=== PATIENT | female | born 1950 | race Caucasian/White ===

== ENCOUNTER 2016-04-11 18:10 | Emergency (ER) | payer MEDICARE ==
[2016-04-11] MEDS ORDERED: HYDROmorphone 1 MG/ML 1 ML SYRINGE IM STA (18:51)
--- NOTE | 2016-04-11 19:01 | ED ---
Upper Extremity HPI - General Chief Complaint: Extremity Injury, Upper Stated Complaint: Fell/shoulder injury Time Seen by Provider: 04/11/16 18:45 Source: patient, RN notes reviewed Mode of arrival: wheelchair Limitations: no limitations - History of Present Illness Initial Comments: 65-year-old female presents emergency Department with chief complaint of right shoulder pain. Patient states that she slipped on the ice approximately 2 hours ago at the end of her driveway and fell directly on the right shoulder. Patient denies any other injury other than her shoulder. She states her arm was tucked in. Patient denies head injury, LOC, neck pain, back pain, chest pain, shortness breath, nausea or vomiting. Patient denies any previous injuries to her right arm. She states that she feels some clicking and grinding with any slight movement. - Related Data Home Medications Medication Instructions Recorded Confirmed Aspirin 81 mg PO DAILY 12/17/13 04/11/16 Sertraline [Zoloft] 200 mg PO DAILY 12/17/13 04/11/16 Lisinopril [Zestril] 20 mg PO QAM 02/08/15 04/11/16 Naproxen Sodium [Aleve] 440 mg PO BID PRN 02/08/15 04/11/16 Rosuvastatin [Crestor] 20 mg PO HS 04/11/16 04/11/16 guaiFENesin [Mucinex] 600 mg PO Q12H PRN 04/11/16 04/11/16 Previous Rx's Medication Instructions Recorded HYDROcodone/APAP 7.5-325MG [[place] 1 tab PO Q6HR PRN #20 tab 04/11/16 7.5-325] Allergies Allergy/AdvReac Type Severity Reaction Status Date / Time red dye Allergy SKIN TURNS Verified 04/11/16 19:12 RED Review of Systems ROS Statement: Those systems with pertinent positive or pertinent negative responses have been documented in the HPI. ROS Other: All systems not noted in ROS Statement are negative. Past Medical History Past Medical History: Hyperlipidemia, Hypertension Additional Past Medical History / Comment(s): low back pain, POSITIVE STOOL SAMPLE History of Any Multi-Drug Resistant Organisms: None Reported Past Surgical History: Hernia Repair, Tonsillectomy Additional Past Surgical History / Comment(s): COLONOSCOPY. BILAT CATARACT SX Past Anesthesia/Blood Transfusion Reactions: No Reported Reaction Past Psychological History: Depression Smoking Status: Never smoker Past Alcohol Use History: None Reported Past Drug Use History: None Reported - Past Family History Mother Family Medical History: Cancer General Exam Limitations: no limitations General appearance: alert, in no apparent distress Head exam: Present: atraumatic, normocephalic, normal inspection Eye exam: Present: normal appearance, PERRL, EOMI. Absent: scleral icterus, conjunctival injection, periorbital swelling Neck exam: Present: normal inspection, full ROM. Absent: tenderness, meningismus, lymphadenopathy Respiratory exam: Present: normal lung sounds bilaterally. Absent: respiratory distress, wheezes, rales, rhonchi, stridor Cardiovascular Exam: Present: regular rate, normal rhythm, normal heart sounds. Absent: systolic murmur, diastolic murmur, rubs, gallop, clicks Extremities exam: Present: other (Right shoulder patient unwilling to move there is diffuse tenderness noted, radial pulses equal bilaterally with Refill less than 2 seconds there is no forearm tenderness there is no tenderness to the elbow) Back exam: Present: full ROM. Absent: tenderness, paraspinal tenderness, vertebral tenderness Neurological exam: Present: alert, oriented X3, CN II-XII intact Skin exam: Present: warm, dry, intact, normal color. Absent: rash Course Vital Signs 04/11/16 18:42 Temperature 97.2 F L Pulse Rate 73 Respiratory 18 Rate Blood Pressure 172/78 O2 Sat by Pulse 97 Oximetry Medical Decision Making - Medical Decision Making 65-year-old female presented emergency department for slipped and fall on ice. Patient right shoulder pain. Patient has a right humerus fracture. Patient was placed in a sling, given a prescription for pain medication and follow-up with orthopedics Dr. Goyal on-call. Return parameters were discussed. Disposition Clinical Impression: Fall from slipping on ice, Right humeral fracture Disposition: HOME SELF-CARE Condition: Stable Instructions: Arm Fracture in Adults (ED) Additional Instructions: Please wear sling until seen by orthopedics.Please return to the Emergency Department if symptoms worsen or any other concerns. Prescriptions: HYDROcodone/APAP 7.5-325MG [[place] 7.5-325] 1 tab PO Q6HR PRN #20 tab PRN Reason: Pain Referrals: Agata Velazquez III, MD [Primary Care Provider] - 1-2 days Armond Lozano MD [STAFF PHYSICIAN] - 1-2 days Time of Disposition: 19:36
--- NOTE | 2016-04-11 19:37 | XR ---
EXAMINATION TYPE: XR shoulder complete RT DATE OF EXAM: 04/11/2016 7:32 PM COMPARISON: NONE HISTORY: Fall today. Shoulder pain. TECHNIQUE: 2 views FINDINGS: There is an impacted fracture of the humeral neck. There is no dislocation. Exam is limited by the views. AC joint is intact. IMPRESSION: Acute impacted humeral neck fracture. There is probably 2 cm of impaction and displacemen t.
[2016-04-11] MEDS ORDERED: HYDROcodone/APAP 7.5-325MG 1 EACH TAB PO ONE (19:43)
[2016-04-11] MEDS ORDERED: DIAZEPAM 5 MG TAB PO STA (20:34)
[2016-04-11 21:04] VITALS: BP 168/73; PULSE 72; RESP 16; TEMP 97.5
== END 2016-04-11 21:00 | disposition home or self-care (01) ==
LOC: EC 18:10
DX: S42.301A Unspecified fracture of shaft of humerus, right arm, initial encounter for closed fracture (principal); W00.0XXA Fall on same level due to ice and snow, initial encounter; I10 Essential (primary) hypertension; E78.5 Hyperlipidemia, unspecified; F32.9 Major depressive disorder, single episode, unspecified; Z79.82 Long term (current) use of aspirin; Z79.899 Other long term (current) drug therapy
CPT/HCPCS: 73030; 99283; 96372; J1170

== ENCOUNTER → 2016-04-12 | Outpatient (CLI) | payer MEDICARE ==
[2016-04-12 13:43] LABS: EKG EKG PERFORMED
[2016-04-12 14:17] LABS: Basophils % (A) 0 %; CH 30.6; CHCM 32.4; Eosinophils % (A) 0 %; HCT 38.4 % (34.0-46.0); HDW 2.44; HGB 12.4 gm/dL (11.4-16.0); Luc # (Auto) 0.13; Luc % (Auto) 1; Lymphocytes # (A) 1.2 k/uL (1.0-4.8); Lymphocytes % (A) 12 %; MCH 30.7 pg (25.0-35.0); MCHC 32.3 g/dL (31.0-37.0); Mean Platelet Volume 7.2; Monocytes # (A) 0.5 k/uL (0-1.0); Monocytes % (A) 5 %; Neutrophils % (A) 81 %; RBC 4.04 m/uL (3.80-5.40); RDW 13.5 % (11.5-15.5); WBC 9.8 k/uL (3.8-10.6); WBC (Perox) 10.51
[2016-04-12 14:30] LABS: Anion Gap 12 mmol/L; Carbon Dioxide 25 mmol/L (22-30); Chloride 104 mmol/L (98-107); Potassium 4.4 mmol/L (3.5-5.1); Sodium 141 mmol/L (137-145)
[2016-04-12 14:31] LABS: Partial Thromboplastin Time 22.6 sec (22.0-30.0); Prothrombin Time 10.4 sec (9.0-12.0)
== END | disposition home or self-care (01) ==
LOC: LABPAT 13:07
PROVIDERS: ATTEND Orthopaedic Surgery
DX: Z01.812 Encounter for preprocedural laboratory examination (principal); Z01.810 Encounter for preprocedural cardiovascular examination
CPT/HCPCS: 80051; 85025; 85610; 85730; 93005

== ENCOUNTER 2016-04-13 12:02 | Day surgery (SDC) | payer MEDICARE ==
[2016-04-12 15:20] VITALS: BMI 28.7
[~2016-04-13 12:02] MED LIST: FAMOTIDINE 20 MG/2 ML VIAL IV PRN; HYDROmorphone 1 MG/ML 1 ML SYRINGE IVP PRN; MIDAZOLAM 2 MG/2 ML VIAL IV PRN; ceFAZolin 2 GM in SODIUM CHLORIDE 0.9% 100 ML IVPB ONE
--- NOTE | 2016-04-13 12:15 | HP ---
DATE OF ADMISSION: CHIEF COMPLAINT: Right shoulder pain. HISTORY OF PRESENT ILLNESS: The patient is a 65-year-old, right-hand dominant retired female who presents with right shoulder pain after an injury on 04/11/2016. She slipped and fell on ice in her driveway at home. Initially, she was seen in the emergency room and placed into a sling. She denies previous injury. PAST MEDICAL HISTORY: Significant for hypertension and depression. CURRENT MEDICATIONS: 1. Aspirin. 2. Lisinopril. 3. Zoloft. 4. Crestor. 5. [place]. She notes allergies to SULFA and RED DYE. FAMILY HISTORY: Significant for heart disease and cancer. SOCIAL HISTORY: Negative for current tobacco or alcohol use. SURGICAL HISTORY: Significant for umbilical hernia repair, tonsillectomy and previous colonoscopy. Sixteen-point review of systems otherwise reviewed and is noncontributory. On examination, the patient is approximately 5 feet 1 inch, 157 pounds of mesomorphic habitus. HEENT exam is nonfocal. Neck is supple. On examination of her right shoulder, she has moderate anterior swelling. She is tender about the proximal humerus. She has limited range of motion because of pain. She is nontender about the right elbow and wrist. Her distal neurovascular exam appears be intact in the right upper extremity. X-rays to include AP and scapular Y of the right shoulder obtained in the office show a proximal humeral neck fracture with moderate angulation and shortening. There is some metaphyseal comminution. IMPRESSION: Right proximal humerus fracture, displaced. RECOMMENDATIONS: I talked to the patient at length regarding her treatment options. At this point, she opts to proceed with surgery. We will plan to proceed with open reduction and internal fixation of the right proximal humerus fracture. Risks and benefits are discussed at length in layman's terms. We will likely keep the patient for a 23-hour hold postoperatively.
[2016-04-13] MEDS: LACTATED RINGERS 1,000 ML IV SCH ×2 (12:50→20:09)
[2016-04-13] MEDS ORDERED: LIDOCAINE 1% 20 ML VIAL (10MG/ML) FOR IV START INTRADERMA ONE (12:51)
[2016-04-13] MEDS ORDERED: LIDOCAINE 1% INJ 10MG/ML (20 ML MDV) ONE (13:11)
[2016-04-13] MEDS ORDERED: LIDOCAINE 2%-EPI 1:100,000 20 ML VIAL ONE (13:11)
[2016-04-13] MEDS ORDERED: NEOSTIGMINE 1 MG/ML 10 ML VIAL ONE (13:11)
[2016-04-13] MEDS ORDERED: fentaNYL (PF) 50 MCG/ML 2 ML AMP ONE (13:11)
[2016-04-13] MEDS ORDERED: SUCCINYLCHOLINE CHLORIDE 100 MG/5 ML SYR IV ONE (13:11)
[2016-04-13] MEDS ORDERED: MIDAZOLAM 2 MG/2 ML VIAL ONE (13:11)
[2016-04-13] MEDS ORDERED: ROCURONIUM BROMIDE 10 MG/ML 10 ML VIAL IV ONE (13:11)
[2016-04-13] MEDS ORDERED: ONDANSETRON 4 MG/2 ML VIAL ONE (13:11)
[2016-04-13] MEDS ORDERED: PHENYLEPHRINE-0.9% NACL SYG 1 MG/10 ML SYRINGE ONE (13:11)
[2016-04-13] MEDS ORDERED: ROPIVACAINE 5 MG/ML 30 ML VIAL ONE (13:11)
[2016-04-13] MEDS ORDERED: GLYCOPYRROLATE 0.2 MG/ML 2 ML VIAL ONE (13:11)
[2016-04-13] MEDS ORDERED: PROPOFOL 10 MG/ML 20 ML VIAL IV ONE (13:11)
[2016-04-13] MEDS ORDERED: ceFAZolin 1,000 MG in SODIUM CHLORIDE 0.9% 1,000 ML IRRIGATION ONE (13:38)
[2016-04-13] MEDS ORDERED: ONDANSETRON 4 MG/2 ML VIAL IVP PRN (14:53)
[2016-04-13] MEDS ORDERED: HYDROcodone/APAP 7.5-325MG 1 EACH TAB PO PRN (14:56)
[2016-04-13] MEDS ORDERED: LACTATED RINGERS 1,000 ML IV ONE (15:05)
--- NOTE | 2016-04-13 15:12 | P.OP ---
Date of Procedure: 04/13/16 Preoperative Diagnosis: Displaced right 2 part proximal humerus fracture Postoperative Diagnosis: Same Procedure(s) Performed: Open reduction and internal fixation right 2 part proximal humerus fracture Implants: Biomet S3 proximal humeral plate Anesthesia: luther ALVAREZ Surgeon: Armond Lozano Hair Boiler Operator #1: Conner Steele Estimated Blood Loss (ml): 50 Pathology: none sent Condition: stable Disposition: PACU Indications for Procedure: The patient's 65-year-old [id number] retired female who presents with right shoulder pain after a recent fall. Upon evaluation she was noted of displaced right proximal humerus fracture. A discussion of the risks and benefits of operative intervention versus conservative measures was made with the patient. She opted to proceed with surgery. Operative risks to include infection, neurovascular injury, development of blood clots, possible development nonunion, malunion, and possible need for subsequent procedures was discussed. Informed consent was obtained. Operative Findings: As below Description of Procedure: The patient was brought to the operating room, and after induction of general anesthesia was placed into a beachchair position. The bony prominences were appropriately padded. The right upper extremity was prepped and draped in normal fashion. A deltopectoral incision was made lateral to the coracoid process extending approximately 12 cm. The skin was incised sharply. Subcutaneous tissues were divided bluntly. Electrocautery was used for hemostasis. The cephalic vein was identified and the deltopectoral interval bluntly developed. The vein was taken laterally with the deltoid. A self- retaining retractor was placed. Subdeltoid adhesions were bluntly dissected. The fracture site was identified and cleaned of clot and debris. It was then provisionally reduced. A 3-hole proximal humeral plate was placed just lateral to the bicipital groove and provisionally pinned in place. Fluoroscopy showed adequate position of the plate and reduction. Cortical screws were placed in the distal 3 holes and smooth pegs in the proximal plate. Final fluoroscopic views to include AP and lateral views showed adequate reduction of the fracture and placement of the implant. The wound was irrigated normal saline. The deltopectoral interval was closed with interrupted 2-0 Vicryl sutures. Skin was repaired with 3-0 subcu over strata fix suture. Skin tape and adhesive was applied along with a sterile dressing. A sling was applied. The patient was awoken from general anesthesia and transferred to recovery room in good condition. Blood loss was estimated at 50 mL. No complications were incurred. Sponge and needle counts were correct at the end the case.
--- NOTE | 2016-04-13 15:21 | XR ---
Fluoroscopy History: ORIF R shoulder ORIF R shoulder, 18sec fl time
[2016-04-13 15:35] VITALS: RESP 16
[2016-04-13] MEDS ORDERED: diphenhydrAMINE 25 MG CAP PO PRN (18:33)
[2016-04-13] MEDS: HYDROmorphone 1 MG/ML 1 ML SYRINGE IVP PRN ×2 (19:42→21:54)
[2016-04-13] MEDS: ceFAZolin 2 GM in SODIUM CHLORIDE 0.9% 100 ML IVPB SCH (20:09)
[2016-04-13] MEDS: HYDROcodone/APAP 7.5-325MG 1 EACH TAB PO PRN (20:33)
[2016-04-13] MEDS ORDERED: ATORVASTATIN 20 MG TAB PO SCH (21:00)
[2016-04-14] MEDS: HYDROmorphone 1 MG/ML 1 ML SYRINGE IVP PRN ×2 (00:32→10:56)
[2016-04-14] MEDS: HYDROcodone/APAP 7.5-325MG 1 EACH TAB PO PRN ×3 (04:14→13:14)
[2016-04-14] MEDS: ceFAZolin 2 GM in SODIUM CHLORIDE 0.9% 100 ML IVPB SCH (04:14)
--- NOTE | 2016-04-14 08:08 | P.DS ---
Providers Date of admission: 04/13/2016 Expected date of discharge: 04/14/16 Attending physician: Armond Lozano Primary care physician: Stated None Hospital Course: Date of admission: 04/13/2016 Date of discharge: 04/14/2016 Admission diagnosis: Status post ORIF right proximal humerus fracture Discharge diagnosis: Same Attending physician: Dr. Lozano Surgical procedures: Open reduction internal fixation right proximal humerus fracture Brief history: Patient is a 65-year-old female sustained a fall earlier this week. She was seen and Jc Mullins, she is diagnosis right proximal humerus fracture and told to follow-up with orthopedic surgeon in the outpatient setting. She did see Dr. Lozano a few days after, and it was determined that surgical fixation would be the best treatment option for her. The surgery was scheduled for 04/13/2016. Hospital course: Details of patient's surgery can be found in operative report. Patient tolerated the procedure well and was subsequently transported to orthopedic floor. Patient's orthopeidc and medical care was provided daily. Patient had daily laboratory tests performed for evaluation of overall blood counts. Patient was treated with aspirin for their postoperative DVT prophylaxis during their inpatient stay. Patient was noted to have a relatively uneventful postoperative course. Patient reported satisfactory pain control with oral pain medications by postoperative day 0. Patient showed satisfactory progress with physical therapy. Patient moved steadily through the program and had no difficulty meeting the goals by postoperative day 1. Given patient's otherwise satisfactory course and having met physical therapy goals, plan is to discharge patient home on postoperative day 1. Discharge condition/disposition: Patient will be discharged home in stable condition. Discharge medications: Instructions are given on resumption of patient's normal daily medications per primary care recommendation, in addition patient will be prescribed [place] 7.5 mg/325 mg, aspirin 325 mg. Discharge instructions: 1. Wound care and infection precautions, keep incision dry and covered while showering, no lotions, creams, moisturizers. No soaking, tubs, pools, hottubs. Do not scrub over the incision. 2. Utilize arm sling 3. Ice and elevate when necessary. Do not exceed 20 minutes per hour with ice pack. 4. Utilize compression sleeve until seen at first follow up appointment. 5. Pain meds and anticoagulants per prescription. 6. Pain medication has potential to cause constipation. Increase oral fluid and fiber intake. Contact primary care provider if you have not had a bowel movement within 48 hours after discharge 7. Follow up in office at 2 weeks postop with Devan Steele PA-C 8. Follow up with your primary care doctor 7-10 days after discharge. 9. Contact [facility] with any questions, . Procedures: Open reduction internal fixation right proximal humerus fracture Patient Condition at Discharge: Good Plan - Discharge Summary New Discharge Prescriptions: RX: Aspirin 325 mg PO DAILY #30 tab HYDROcodone/APAP 7.5-325MG [[place] 7.5] 1 - 2 each PO Q6HR PRN #60 tab PRN Reason: Pain Discharge Medication List Sertraline [Zoloft] 200 mg PO DAILY 12/17/13 [History] Naproxen Sodium [Aleve] 440 mg PO BID PRN 02/08/15 [History] RX: Lisinopril [Zestril] 20 mg PO QAM 02/08/15 [History] Rosuvastatin [Crestor] 20 mg PO HS 04/11/16 [History] guaiFENesin [Mucinex] 600 mg PO Q12H PRN 04/11/16 [History] RX: Aspirin 325 mg PO DAILY #30 tab 04/13/16 [Rx] HYDROcodone/APAP 7.5-325MG [[place] 7.5] 1 - 2 each PO Q6HR PRN #60 tab 04/14/16 [ Rx] Follow up Appointment(s)/Referral(s): Conner Steele PAC [PHYSICIAN Y[employer] WINDER] - 2 Weeks Activity/Diet/Wound Care/Special Instructions: Orthopedic Discharge Instructions: 1. Wound care and infection precautions, [keep incision dry and covered while showering], no lotions, creams, moisturizers. No soaking, pools, hot tubs. Do not scrub over incision. 2. Utilize arm sling, begin pendular arm exercises in 04/20/2015 3. Ice and elevate when necessary. Do not exceed 20 minutes per hour with ice pack. 4. Utilize compression sleeve until seen at first follow up appointment. 5. Pain meds and anticoagulants per prescription. 6. Pain medication has potential to cause constipation. Increase oral fluid and fiber intake. Contact primary care provider if you have not had a bowel movement within 48 hours after discharge. 7. Follow up in office at 2 weeks postop with Devan Steele PA-C 8. Follow up with your primary care doctor 7-10 days after discharge. 9. Contact [facility] with any questions, . Discharge Disposition: HOME SELF-CARE
--- NOTE | 2016-04-14 08:31 | P.ONQ ---
Anesthesiology Proc Note - PNB - Peripheral Nerve Block Performed Right Interscalene Single Indication: Acute Post-Operative Pain, Requested by physician Sedation Type: Sedate with meaningful contact maintained Preparation: Sterile Prep Position: Supine Needle Size: 80mm (3") Needle Gauge: 21 Technique: Ultrasound Injectate: 2.0% Lidocaine (see comment for volume) Blood Aspirated: No Pain Paresthesia on Injection Noted: No Resistance on Injection: Normal Events: Uneventful and Well Tolerated (Ropivacaine 0.5%-17 mL used, Xylocaine 2 % with epi--17 mL used)
[2016-04-14] MEDS ORDERED: LISINOPRIL 20 MG TAB PO SCH (09:00)
[2016-04-14] MEDS ORDERED: SERTRALINE 100 MG TAB PO SCH (09:00)
[2016-04-14 09:14] VITALS: BP 127/65; PULSE 104; TEMP 98.8
--- NOTE | 2016-04-14 10:29 | P.PN ---
Subjective Principal diagnosis: s/p ORIF right proximal humerus fracture Patient seen today resting in hospital bed, she appears comfortable. She admits to increase in pain when she moves the arm. She denies chest pain, shortness of breath, lightheadedness, fever or chills. Objective - Vital Signs Vital signs: Vital Signs Temp 98.8 F 04/14/16 07:00 Pulse 104 H 04/14/16 07:00 Resp 16 04/14/16 07:00 BP 127/65 04/14/16 07:00 Pulse Ox 98 04/14/16 07:00 Intake & Output 04/13/16 04/14/16 04/14/16 18:59 06:59 18:59 Intake Total 1701 Output Total 400 Balance 1301 Intake: IV 1701 Output: Urine 350 Estimated Blood Loss 50 Other: Voiding Method Toilet # Voids 1 - Exam Right upper extremity: Initial postoperative bandages removed, incision is clean, dry and intact. There is ecchymosis noted on the medial and lateral aspects of the incision. Obvious soft tissue swelling present around the incisional site also. Extension and flexion is intact at the wrist, she is able to wiggle the fingers. Sensory exam to light touch throughout the upper extremities intact. Radial pulses 2+. Assessment and Plan Plan: Assessment: 1. Postop day #1 status post ORIF right proximal humerus fracture Assessment: 1. Pain control, we'll discharge home on oral medication 2. Nonweightbearing right upper extremity, utilize arm sling 3. Daily dressing changes 4. Utilize ice often on the shoulder 5. GI and DVT prophylaxis, she'll be discharged home on aspirin 325 mg once a day 6. Patient will be discharged home today Time with Patient: Less than 30
== END 2016-04-14 13:34 | disposition home or self-care (01) ==
LOC: OR 12:02 → 3SUR 14:58 → OR 04-14 13:34
PROVIDERS: ATTEND Orthopaedic Surgery
DX: S42.201A Unspecified fracture of upper end of right humerus, initial encounter for closed fracture (principal); W00.0XXA Fall on same level due to ice and snow, initial encounter; Y92.008 Other place in unspecified non-institutional (private) residence as the place of occurrence of the external cause; I10 Essential (primary) hypertension; E78.5 Hyperlipidemia, unspecified; F32.9 Major depressive disorder, single episode, unspecified; Z79.82 Long term (current) use of aspirin; Z79.891 Long term (current) use of opiate analgesic; Z79.899 Other long term (current) drug therapy; Z88.2 Allergy status to sulfonamides; Z91.09 Other allergy status, other than to drugs and biological substances
CPT/HCPCS: 73020; 23615; C1713; J2250; J2710; J0690 ×3; J2405; J2001; J3010; J1170 ×2; J2795; J2370; J0330; J2704

== ENCOUNTER → 2017-12-06 | Outpatient (CLI) | payer MEDICARE ==
[2017-12-06 17:54] LABS: Blood Urea Nitrogen 25 mg/dL (7-17)
--- NOTE | 2017-12-06 22:23 | CT ---
EXAMINATION TYPE: CT abdomen pelvis w con DATE OF EXAM: 12/06/2017 HISTORY: Left lower quadrant abdominal pain. CT DLP: 1293mGycm Automated Exposure Control for Dose Reduction was Utilized. CONTRAST: CT scan of the abdomen and pelvis is performed with oral and with IV Contrast, patient injected with 100ml mL of Isovue 300. COMPARISON: Prior CT abdomen and pelvis December 06, 2010. FINDINGS: LUNG BASES: No significant abnormality is appreciated. LIVER/GB: Liver is low dense relative to spleen suggesting diffuse fatty infiltration. Previously vis ualized subcentimeter hypodense lesion in the hepatic dome is not clearly seen on current study. PANCREAS: No significant abnormality is seen. SPLEEN: No significant abnormality is seen. ADRENALS: No significant abnormality is seen. KIDNEYS: Parapelvic cysts in both kidneys, left more prominent than right are redemonstrated. BOWEL: The oral contrast reaches level of the left colon. There are diverticula seen in the sigmoid c olon without convincing CT evidence for acute diverticulitis. There is no suspicious small large ang l dilatation. UTERUS/ADNEXA: Anteverted uterus is present. LYMPH NODES: No greater than 1cm abdominal or pelvic lymph nodes are appreciated. OSSEOUS STRUCTURES: There are bilateral pars defects at L4 level. There is grade 1 anterolisthesis of L4 on L5. There is advanced disc space narrowing with vacuum disc phenomenon and endplate sclerosis at L4-L5 level. OTHER: There is fairly moderate calcified plaque of the aorta extending into branch vessels. IMPRESSION: Sigmoid colonic diverticulosis without convincing CT evidence for acute diverticulitis. N o suspicious new or acute findings seen to account for patient's symptoms.
== END ==
LOC: RADCTMAIN 17:00
PROVIDERS: ATTEND Physician Assistant Medical
DX: K57.30 Diverticulosis of large intestine without perforation or abscess without bleeding (principal)
CPT/HCPCS: 82565; 84520; 74177; 36415; Q9967

== ENCOUNTER → 2019-11-06 | Outpatient (CLI) | payer MEDICARE ==
--- NOTE | 2019-12-08 14:17 | EM ---
EVENT MONITOR EVENT MONITOR: Patient was monitored between the November 05 and December 02, 2019. The rhythm strip revealed sinus mechanism baseline rhythm. There was no episode of atrial fibrillation. Single PACs were noted and a single PVC. Symptoms of irregular beat and palpitation correlated with sinus mechanism. No episode of atrial fibrillation was noted and no ventricular tachycardia. There was one episode of supraventricular tachycardia of 6 complexes noted on November 22. MMODL / IJN: [id number] /
== END | disposition home or self-care (01) ==
LOC: RADECHMAIN 12:41
PROVIDERS: ATTEND Family Medicine
DX: R00.2 Palpitations (principal)
CPT/HCPCS: 93270

== ENCOUNTER → 2020-01-23 | Outpatient (CLI) | payer MEDICARE ==
--- NOTE | 2020-01-23 15:04 | BD ---
EXAMINATION TYPE: Axial Bone Density DATE OF EXAM: 01/23/2020 COMPARISON: NONE CLINICAL HISTORY: Postmenopausal female. Height: 64 Weight: 162.3 FRAX RISK QUESTIONS: Alcohol (3 or more units per day): no Family History (Parent hip fracture): no Glucocorticoids (More than 3mos): (Ex: prednisone, prednisolone, methylprednisolone, dexamethasone, and hydrocortisone). History of Fracture in Adulthood: yes Secondary Osteoporosis: 1. Type 1 Diabetes: no 2. Hyperthyroidism: no 3. Menopause before 45: no 4. Malnutrition: no 5. Chronic liver disease: no Rheumatoid Arthritis: no Current Tobacco Use: no RISK FACTORS HISTORY OF: Family History of Osteoporosis: no Active: yes Diet low in dairy products/other sources of calcium: yes Postmenopausal woman: age 51 MEDICATIONS: cholesterol med, zoloft, vitamins Additional History: EXAM MEASUREMENTS: Bone mineral densitometry was performed using the [employer] System. Bone mineral density as measured about the Lumbar spine is: ----- L1-L4(G/cm2): 1.248 T Score Values are as follows: ----- L2: -0.8 ----- L3: -0.2 ----- L4: 3.4 ----- L1-L4: 0.6 Bone mineral density : baseline Bone mineral density about the R hip (g/cm2): 0.858 Bone mineral density about the L hip (g/cm2): 0.910 T Score values are as follows: -----R Neck: -1.3 -----L Neck: -0.9 -----R Total: -0.6 -----L Total: -0.5 Bone mineral density : baseline IMPRESSION: Osteopenia (T Score between -2.5 and -1) at the femoral neck level in the right hip. There is slightly increased risk of fracture and the patient may be considered for treatment. Re-Screen 2-5 years. NOTE: T-SCORE=SD OF THE YOUNG ADULT MEAN.
== END | disposition home or self-care (01) ==
LOC: RADBDWWP 12:38
PROVIDERS: ATTEND Family Medicine
DX: M85.851 Other specified disorders of bone density and structure, right thigh (principal); Z78.0 Asymptomatic menopausal state
CPT/HCPCS: 77080

== ENCOUNTER 2020-09-29 09:15 | Day surgery (SDC) | payer MEDICARE ==
[2020-09-28 08:37] VITALS: BMI 27.8
[~2020-09-29 09:15] MED LIST changes: -FAMOTIDINE 20 MG/2 ML VIAL IV PRN; -HYDROmorphone 1 MG/ML 1 ML SYRINGE IVP PRN; +LACTATED RINGERS 1,000 ML IV SCH; +LIDOCAINE 1% (10MG/ML) FOR IV START INTRADERMA PRN; -MIDAZOLAM 2 MG/2 ML VIAL IV PRN; -ceFAZolin 2 GM in SODIUM CHLORIDE 0.9% 100 ML IVPB ONE
[2020-09-29 09:41] VITALS: RESP 16; TEMP 97.1
[2020-09-29] MEDS ORDERED: PROPOFOL 10 MG/ML 20 ML VIAL IV ONE (10:26)
[2020-09-29] MEDS ORDERED: LIDOCAINE 1% INJ 10MG/ML (20 ML MDV) ONE (10:26)
--- NOTE | 2020-09-29 10:46 | P.PCN ---
Date of Procedure: 09/29/20 Procedure(s) Performed: BRIEF HISTORY: Patient is a 69-year-old pleasant white female scheduled for an elective colonoscopy as a part of evaluation of prior history of colon polyps. Last colonoscopy was 5 years ago. PROCEDURE PERFORMED: Colonoscopy with biopsy and snare polypectomy. PREOPERATIVE DIAGNOSIS: History of colon polyps. IV sedation per Anesthesia. PROCEDURE: After informed consent was obtained, the patient, was brought into the endoscopy unit. IV sedation was administered by Anesthesia under continuous monitoring. Digital rectal examination was normal. Initially the Olympus CF-160 flexible video colonoscope was then inserted in the rectum, gradually advanced into the cecum without any difficulty. Careful examination was performed as the scope was gradually being withdrawn. Ileocecal valve and the appendiceal orifice were visualized and appeared normal. Prep was excellent. The base of the cecum there was a 2-3 mm polyp that was removed by cold biopsy. In the hepatic flexure there was a every 8 mm polyp removed by snare polypectomy. Rest of the mucosa of the cecum, ascending colon, transverse colon, descending colon, sigmoid colon, and rectum appeared normal. Moderate sigmoid diverticulosis seen. Retroflexion was performed in the rectum and no lesions were seen. The patient tolerated the procedure well. IMPRESSION: 3 mm cecal polyp status post biopsy 7-8 mm hepatic flexure polyp status post polypectomy Moderate sigmoid diverticulosis RECOMMENDATIONS: Findings of this examination were discussed with the patient as well as a family. She was advised to follow with the biopsy results and have a repeat screening colonoscopy in 5 years because of the history of colon polyps.
[2020-09-29 11:05] VITALS: BP 149/80; PULSE 60
== END 2020-09-29 11:52 | disposition home or self-care (01) ==
LOC: ORWHC2ENDO 09:15
PROVIDERS: ATTEND Internal Medicine Gastroenterology
DX: D12.0 Benign neoplasm of cecum (principal); D12.3 Benign neoplasm of transverse colon; K57.30 Diverticulosis of large intestine without perforation or abscess without bleeding; F03.90 Unspecified dementia, unspecified severity, without behavioral disturbance, psychotic disturbance, mood disturbance, and anxiety; K58.9 Irritable bowel syndrome, unspecified; Z88.2 Allergy status to sulfonamides; Z79.82 Long term (current) use of aspirin
CPT/HCPCS: 88305; 45380; 45385; J2001; J2704

== ENCOUNTER 2023-10-15 15:06 | Emergency (ER) | payer MEDICARE ==
[2023-10-15] MEDS: SODIUM CHLORIDE 0.9% 1,000 ML IV STA (15:42)
[2023-10-15] MEDS: ACETAMINOPHEN TAB 325 MG TAB PO STA (15:42)
[2023-10-15] MEDS: ONDANSETRON 4 MG/2 ML VIAL IVP STA (15:55)
--- NOTE | 2023-10-15 15:55 | ED ---
Fever HPI - General Chief Complaint: Fever Stated Complaint: fever,UTI Time Seen by Provider: 10/15/23 15:53 Source: patient, family (daughter), RN notes reviewed Mode of arrival: wheelchair Limitations: no limitations - History of Present Illness Initial Comments: 72-year-old female presented ER with a chief complaint of a fever. Patient states for the last 5-7 days she has been feeling unwell. She has been endorsing a headache and cough. She states the headache has been increasing in intensity throughout the week. Patient was seen at urgent care yesterday and diagnosed with a UTI. Patient received an IM antibiotic injection of but is unsure of which medication. Patient has yet to start oral antibiotics. She states she has been having a cough and coughing up white phlegm. She denies any chest pain, shortness of breath, abdominal pain, constipation/diarrhea, urinary complaints or peripheral edema. - Related Data Home Medications Medication Instructions Recorded Confirmed Sertraline [Zoloft] 200 mg PO DAILY 12/17/13 10/15/23 lisinopriL [Zestril] 20 mg PO DAILY 02/08/15 10/15/23 Aspirin [Adult Low Dose Aspirin EC] 81 mg PO DAILY 09/28/20 10/15/23 Cholecalciferol (Vitamin D3) 250 mcg PO DAILY 09/28/20 10/15/23 [Vitamin D3 (5000 Iu)] Fluticasone Nasal [place] [Flonase 1 spray EA NOSTRIL HS 09/28/20 10/15/23 Nasal [place]] Rosuvastatin Calcium [Crestor] 40 mg PO DAILY 09/28/20 10/15/23 Biotin [Biotin Disolve] 10,000 mcg PO DAILY 10/15/23 10/15/23 Fenofibrate Nanocrystallized 145 mg PO DAILY 10/15/23 10/15/23 [Tricor] Previous Rx's Medication Instructions Recorded Ondansetron Odt [Zofran Odt] 4 mg PO Q8HR PRN #10 tab 10/15/23 Allergies Allergy/AdvReac Type Severity Reaction Status Date / Time red dye Allergy SKIN TURNS Verified 10/15/23 17:24 RED Sulfa (Sulfonamide Allergy Swelling Verified 10/15/23 17:24 Antibiotics) Review of Systems ROS Statement: Those systems with pertinent positive or pertinent negative responses have been documented in the HPI. ROS Other: All systems not noted in ROS Statement are negative. Past Medical History Past Medical History: GERD/Reflux, Hyperlipidemia, Hypertension, Osteoarthritis (OA) Additional Past Medical History / Comment(s): IBS., IRREGULAR HEART BEAT. History of Any Multi-Drug Resistant Organisms: None Reported Past Surgical History: Hernia Repair, Tonsillectomy Additional Past Surgical History / Comment(s): COLONOSCOPY. 04-13-16 orif rt humerus. CATARACTS Past Anesthesia/Blood Transfusion Reactions: No Reported Reaction Past Psychological History: Anxiety Smoking Status: Never smoker Past Alcohol Use History: None Reported Past Drug Use History: None Reported - Past Family History Mother Family Medical History: Cancer Additional Family Medical History / Comment(s): "TUMOR AROUND HER HEART" General Exam Limitations: no limitations General appearance: alert, in no apparent distress Respiratory exam: Present: normal lung sounds bilaterally. Absent: respiratory distress, wheezes, rales, rhonchi, stridor Cardiovascular Exam: Present: regular rate, normal rhythm, normal heart sounds. Absent: systolic murmur, diastolic murmur, rubs, gallop, clicks GI/Abdominal exam: Present: soft, normal bowel sounds. Absent: distended, tenderness, guarding, rebound, rigid Extremities exam: Present: normal inspection, full ROM, normal capillary refill. Absent: tenderness, pedal edema, joint swelling, calf tenderness Neurological exam: Present: alert, oriented X3, CN II-XII intact Skin exam: Present: warm, dry, intact, normal color. Absent: rash Course Vital Signs 10/15/23 10/15/23 10/15/23 15:12 16:46 17:39 Temperature 100.6 F H 99.2 F 98.3 F Pulse Rate 94 72 Respiratory 18 16 Rate Blood Pressure 111/70 115/61 O2 Sat by Pulse 97 97 Oximetry Medical Decision Making - Medical Decision Making Was pt. sent in by a medical professional or institution (, PA, CONSUMER LOAN SPECIALIST, urgent care, hospital, or skilled nursing...) When possible be specific @ -No Did you speak to anyone other than the patient for history (EMS, parent, family, police, friend...)? What history was obtained from this source @ -Daughter aiding in HPI Did you review nursing and triage notes (agree or disagree)? Why? @ -I reviewed and agree with nursing and triage notes Were old charts reviewed (outside hosp., previous admission, EMS record, old EKG, old radiological studies, urgent care reports/EKG's, skilled nursing records)? Report findings @ -No old charts were reviewed Differential Diagnosis (chest pain, altered mental status, abdominal pain women, abdominal pain men, vaginal bleeding, weakness, fever, dyspnea, syncope, headache, dizziness, GI bleed, back pain, seizure, CVA, palpatations, mental health, musculoskeletal)? @ -Differential Fever: Pneumonia, viral URI, endocarditis, myocarditis, pericarditis, otitis, sinusitis, peritonsillar Abscess, retropharyngeal Abscess, epiglottitis, peritonitis, appendicitis, Ilsa cystitis, diverticulitis, hepatitis, colitis, UTI, PID, TOA, pyelonephritis, prostatitis, epididymitis, meningitis, encephalitis, pulmonary embolism, CVA, thyroid storm, pancreatitis, adrenal crisis, cavernous sinus thrombosis, this is not meant to be an all-in clusive list. EKG interpreted by me (3pts min.). @ -As above X-rays interpreted by me (1pt min.). @ -Chest x-ray interpreted by me negative for acute cardiopulmonary process. CT interpreted by me (1pt min.). @ -CT abdomen pelvis significant for low-attenuation to the liver correlate with serum markers for hepatic steatosis or hepatitis. No evidence of acute process. Colonic diverticulosis. U/S interpreted by me (1pt. min.). @ -None done What testing was considered but not performed or refused? (CT, X-rays, U/S, labs)? Why? @ -None What meds were considered but not given or refused? Why? @ -None Did you discuss the management of the patient with other professionals (professionals i.e. , PA, CONSUMER LOAN SPECIALIST, lab, RT, psych nurse, delinquency prevention social worker, oil well services superintendent, teacher, guest services officer, watch caser)? Give summary @ -No Was smoking cessation discussed for >3mins.? @ -No Was critical care preformed (if so, how long)? @ -No Were there social determinants of health that impacted care today? How? (H omelessness, low income, unemployed, alcoholism, drug addiction, transportation, low edu. Level, literacy, decrease access to med. care, usp, rehab)? @ -No Was there de-escalation of care discussed even if they declined (Discuss DNR or withdrawal of care, Hospice)? DNR status @ -No What co-morbidities impacted this encounter? (DM, HTN, Smoking, COPD, CAD, Cancer, CVA, ARF, Chemo, Hep., AIDS, mental health diagnosis, sleep apnea, morbid obesity)? @ -None Was patient admitted / discharged? Hospital course, mention meds given and route, prescriptions, significant lab abnormalities, going to OR and other pertinent info. @ -Discharge. 72-year-old female presented to the ER with a chief complaint of fever. History and physical exam completed. Vitals upon arrival remarkable for a temperature of 100.6 vitals otherwise stable. Patient no signs of acute distress and nontoxic-appearing. Exam largely unremarkable. Laboratory studies obtained remarkable for transaminitis. AST 86, ALT 91. Urine analysis hemorrhagic with moderate blood and 6 RBCs, urine sent for culture. Viral swabs negative. Chest x-ray interpreted by me negative for acute cardiopulmonary process. Due to transaminitis CT abdomen pelvis performed and significant for low-attenuation to the liver correlate with serum markers for hepatic steatosis or hepatitis. No evidence of acute process. Colonic diverticulosis. Patient received by mouth Tylenol for fever control with improvement. Patient also r eceived IV fluids and Zofran for symptom control. Patient reevaluated and updated on results. Patient in no signs of acute distress and nontoxic- appearing. Symptoms believed to be viral in nature. Patient stable for discharge at this time. Advise close follow-up with PCP. Patient discharged in stable condition. Patient and daughter verbally expressed understanding agree with care plan. Case discussed with ED attending by Dr. Dc. Undiagnosed new problem with uncertain prognosis? @ -No Drug Therapy requiring intensive monitoring for toxicity (Heparin, Nitro, Insulin, Cardizem)? @ -No Were any procedures done? @ -No Diagnosis/symptom? @ -Fever/viral illness Acute, or Chronic, or Acute on Chronic? @ -Acute Uncomplicated (without systemic symptoms) or Complicated (systemic symptoms)? @ -Uncomplicated Side effects of treatment? @ -No Exacerbation, Progression, or Severe Exacerbation? @ -No Poses a threat to life or bodily function? How? (Chest pain, [place], [place], pneumonia, PE, COPD, DKA, ARF, appy, cholecystitis, CVA, Diverticulitis, Homicidal, Suicidal, threat to staff... and all critical care pts) @ -No - Lab Data Result diagrams: 10/15/23 15:40 10/15/23 15:40 Lab Results 10/15/23 10/15/23 10/15/23 Range/Units 15:40 15:40 15:40 WBC 4.9 (3.8-10.6) k/uL RBC 4.32 (3.80-5.40) m/uL Hgb 13.5 (11.4-16.0) gm/dL Hct 39.9 (34.0-46.0) % MCV 92.5 (80.0-100.0) fL MCH 31.2 (25.0-35.0) pg MCHC 33.8 (31.0-37.0) g/dL RDW 13.8 (11.5-15.5) % Plt Count 163 (150-450) k/uL MPV 7.6 Neutrophils % 87 % Lymphocytes % 7 % Monocytes % 4 % Eosinophils % 1 % Basophils % 0 % Neutrophils # 4.2 (1.3-7.7) k/uL Lymphocytes # 0.4 L (1.0-4.8) k/uL Monocytes # 0.2 (0-1.0) k/uL Eosinophils # 0.0 (0-0.7) k/uL Basophils # 0.0 (0-0.2) k/uL Sodium 133 L (137-145) mmol/L Potassium 4.3 (3.5-5.1) mmol/L Chloride 100 (98-107) mmol/L Carbon Dioxide 25 (22-30) mmol/L Anion Gap 8 mmol/L BUN 11 (7-17) mg/dL Creatinine 0.50 L (0.52-1.04) mg/dL Est GFR (CKD-EPI)AfAm >90 (>60 ml/min/1.73 sqM) Est GFR (CKD-EPI)NonAf >90 (>60 ml/min/1.73 sqM) Glucose 133 H (74-99) mg/dL Plasma Lactic Acid Yonis (0.7-2.0) mmol/L Calcium 9.0 (8.4-10.2) mg/dL Total Bilirubin 0.7 (0.2-1.3) mg/dL AST 86 H (14-36) U/L ALT 91 H (4-34) U/L Alkaline Phosphatase 61 (38-126) U/L Total Protein 6.8 (6.3-8.2) g/dL Albumin 4.3 (3.5-5.0) g/dL Urine Color Yellow Urine Appearance Clear (Clear) Urine pH 6.0 (5.0-8.0) Ur Specific [place] 1.017 (1.001-1.035) Urine Protein 1+ H (Negative) Urine Glucose (UA) Negative (Negative) Urine Ketones Negative (Negative) Urine Blood Moderate H (Negative) Urine Nitrite Negative (Negative) Urine Bilirubin Negative (Negative) Urine Urobilinogen <2.0 (<2.0) mg/dL Ur Leukocyte Esterase Negative (Negative) Urine RBC 6 H (0-5) /hpf Urine WBC 1 (0-5) /hpf Ur Squamous Epith Cells <1 (0-4) /hpf Urine Mucus Occasional H (None) /hpf Influenza Type A (PCR) (Not Detectd) Influenza Type B (PCR) (Not Detectd) RSV (PCR) (Not Detectd) SARS-CoV-2 (PCR) (Not Detectd) 10/15/23 10/15/23 Range/Units 15:40 15:40 WBC (3.8-10.6) k/uL RBC (3.80-5.40) m/uL Hgb (11.4-16.0) gm/dL Hct (34.0-46.0) % MCV (80.0-100.0) fL MCH (25.0-35.0) pg MCHC (31.0-37.0) g/dL RDW (11.5-15.5) % Plt Count (150-450) k/uL MPV Neutrophils % % Lymphocytes % % Monocytes % % Eosinophils % % Basophils % % Neutrophils # (1.3-7.7) k/uL Lymphocytes # (1.0-4.8) k/uL Monocytes # (0-1.0) k/uL Eosinophils # (0-0.7) k/uL Basophils # (0-0.2) k/uL Sodium (137-145) mmol/L Potassium (3.5-5.1) mmol/L Chloride (98-107) mmol/L Carbon Dioxide (22-30) mmol/L Anion Gap mmol/L BUN (7-17) mg/dL Creatinine (0.52-1.04) mg/dL Est GFR (CKD-EPI)AfAm (>60 ml/min/1.73 sqM) Est GFR (CKD-EPI)NonAf (>60 ml/min/1.73 sqM) Glucose (74-99) mg/dL Plasma Lactic Acid Yonis 1.1 (0.7-2.0) mmol/L Calcium (8.4-10.2) mg/dL Total Bilirubin (0.2-1.3) mg/dL AST (14-36) U/L ALT (4-34) U/L Alkaline Phosphatase (38-126) U/L Total Protein (6.3-8.2) g/dL Albumin (3.5-5.0) g/dL Urine Color Urine Appearance (Clear) Urine pH (5.0-8.0) Ur Specific [place] (1.001-1.035) Urine Protein (Negative) Urine Glucose (UA) (Negative) Urine Ketones (Negative) Urine Blood (Negative) Urine Nitrite (Negative) Urine Bilirubin (Negative) Urine Urobilinogen (<2.0) mg/dL Ur Leukocyte Esterase (Negative) Urine RBC (0-5) /hpf Urine WBC (0-5) /hpf Ur Squamous Epith Cells (0-4) /hpf Urine Mucus (None) /hpf Influenza Type A (PCR) Not Detected (Not Detectd) Influenza Type B (PCR) Not Detected (Not Detectd) RSV (PCR) Not Detected (Not Detectd) SARS-CoV-2 (PCR) Not Detected (Not Detectd) - EKG Data -: EKG Interpreted by Me EKG Comments: EKG taken at 16:16 showing a normal sinus rhythm. No acute ST segment or T-wave abnormalities. Normal axis. Ventricular rate 74, SC interval 158, QRS duration 87, QT/QTC 362/390. - Radiology Data Radiology results: report reviewed, image reviewed Disposition Clinical Impression: Viral illness, Fever Disposition: HOME SELF-CARE Condition: Stable Instructions (If sedation given, give patient instructions): Fever in Adults (ED) Additional Instructions: Alternate [id number] Tylenol and Motrin for fever control. Start a ntibiotics as prescribed by urgent care. Follow-up with PCP in next 1-2 days. Return to the ER for any new or worsening concerns. Prescriptions: Ondansetron Odt [Zofran Odt] 4 mg PO Q8HR PRN #10 tab PRN Reason: Nausea Is patient prescribed a controlled substance at d/c from ED?: No Referrals: Jasen Henderson MD [Primary Care Provider] - 1-2 days Time of Disposition: 17:36
[2023-10-15 16:00] LABS: Basophils % (A) 0 %; Eosinophils % (A) 1 %; HCT 39.9 % (34.0-46.0); HGB 13.5 gm/dL (11.4-16.0); Lymphocytes # (A) 0.4 k/uL (1.0-4.8); Lymphocytes % (A) 7 %; MCH 31.2 pg (25.0-35.0); MCHC 33.8 g/dL (31.0-37.0); MCV 92.5 fL (80.0-100.0); Mean Platelet Volume 7.6; Monocytes # (A) 0.2 k/uL (0-1.0); Monocytes % (A) 4 %; Neutrophils # (A) 4.2 k/uL (1.3-7.7); Neutrophils % (A) 87 %; Platelet Count 163 k/uL (150-450); RBC 4.32 m/uL (3.80-5.40); RDW 13.8 % (11.5-15.5); WBC 4.9 k/uL (3.8-10.6)
[2023-10-15 16:06] LABS: Appearance,Urine Clear (Clear); Bilirubin,Urine Negative (Negative); Blood,Urine Moderate (Negative); Color,Urine Yellow; Glucose,Urine (UA) Negative (Negative); Ketones,Urine Negative (Negative); Leukocyte Esterase,Urine Negative (Negative); Mucus,Urine Occasional /hpf; Nitrite,Urine Negative (Negative); Protein,Urine 1+ (Negative); RBC,Urine 6 /hpf (0-5); Specific Gravity,Urine 1.017 (1.001-1.035); Squamous Epithelial Cell,Urine <1 /hpf (0-4); Urobilinogen,Urine <2.0 mg/dL (<2.0); WBC,Urine 1 /hpf (0-5)
--- NOTE | 2023-10-15 16:15 | XR ---
EXAMINATION TYPE: XR chest 2V DATE OF EXAM: 10/15/2023 COMPARISON: 12/17/2013 HISTORY: Fever TECHNIQUE: Frontal and lateral views of the chest are obtained. FINDINGS: There is no focal air space opacity, pleural effusion, or pneumothorax seen. The cardiac silhouette size is within normal limits. The osseous structures are intact. IMPRESSION: No acute cardiopulmonary process.
[2023-10-15 16:18] LABS: ALT 91 U/L (4-34); AST 86 U/L (14-36); African American GFR (CKD) >90 (>60 ml/min/1.73 sqM); Albumin 4.3 g/dL (3.5-5.0); Alkaline Phosphatase 61 U/L (38-126); Anion Gap 8 mmol/L; Blood Urea Nitrogen 11 mg/dL (7-17); Carbon Dioxide 25 mmol/L (22-30); Chloride 100 mmol/L (98-107); Glucose 133 mg/dL (74-99); Non-African American GFR(CKD) >90 (>60 ml/min/1.73 sqM); Potassium 4.3 mmol/L (3.5-5.1); Sodium 133 mmol/L (137-145); Total Bilirubin 0.7 mg/dL (0.2-1.3); Total Protein 6.8 g/dL (6.3-8.2)
--- NOTE | 2023-10-15 17:18 | CT ---
EXAMINATION TYPE: CT abdomen pelvis w con CT DLP: 935.2 mGycm, Automated exposure control for dose reduction was used. DATE OF EXAM: 10/15/2023 5:02 PM COMPARISON: CT abdomen pelvis most recent from CLINICAL INDICATION:Female, 72 years old with history of fever; Fever, N/V. TECHNIQUE: Axial CT abdomen pelvis w con;Sagittal and coronal reformats were created on a separate w orkstation. Contrast used:100ml mL of Isovue 300 with IV Contrast, (none if empty) Oral contrast used: without Oral Contrast (none if empty) FINDINGS: LOWER CHEST: Unremarkable ABDOMEN LIVER: Diffusely hypoattenuating parenchyma. Somewhat heterogenous enhancement along the periphery. GALLBLADDER AND BILE DUCTS: Unremarkable. PANCREAS: Unremarkable. SPLEEN: Unremarkable. ADRENAL GLANDS: Unremarkable. KIDNEYS AND URETERS: Peripelvic renal cysts bilaterally and left renal cortical cyst. No evidence of hydronephrosis or renal calculus. The ureters are unremarkable. PELVIS BLADDER: Unremarkable REPRODUCTIVE: Unremarkable. ABDOMEN & PELVIS STOMACH AND BOWEL: No evidence of bowel obstruction. The stomach is rather unremarkable. Scattered co lonic diverticula. PERITONEUM/RETROPERITONEUM: No evidence of pneumoperitoneum or free fluid. VASCULATURE: No evidence of aortic aneurysm. MUSCULOSKELETAL: No acute osseous abnormalities LYMPH NODES: No gross evidence for lymphadenopathy. SOFT TISSUE/ABDOMINAL WALL: Unremarkable IMPRESSION: 1. Low-attenuation to the liver correlate with serum markers for hepatic steatosis/hepatitis. Otherw ise No evidence for acute process. 2. Colonic diverticulosis.
[2023-10-15 17:40] VITALS: BP 115/61; PULSE 72; RESP 16; TEMP 98.3
== END 2023-10-15 17:46 | disposition home or self-care (01) ==
LOC: SUPCPDRO 15:06 → EC 15:06
DX: B34.9 Viral infection, unspecified (principal); K57.30 Diverticulosis of large intestine without perforation or abscess without bleeding; K76.0 Fatty (change of) liver, not elsewhere classified; R74.01 Elevation of levels of liver transaminase levels; Z88.2 Allergy status to sulfonamides; Z91.041 Radiographic dye allergy status
CPT/HCPCS: 99284; 96374; 96361; 36415; 93005; 80053; 83605; 85025; 81001; 87086; 87636; 71046; 74177; J2405; Q9967